=== PATIENT | male | born 1940 | race African-American/Black ===

== ENCOUNTER → 2017-02-03 | Day surgery (SDC) | payer MEDICARE, MEDICAID ==
--- NOTE | 2017-01-30 10:38 | Pre-Procedure Note/Attestation ---
Pre-Procedure Note/Attestation Complete Prior to Procedure Planned Procedure: left Procedure Narrative: phaco with IOL Indications for Procedure Pre-Operative Diagnosis: cataract Attestation I attest that I discussed the nature of the procedure; its benefits; risks and complications; and alternatives (and the risks and benefits of such alternatives ), prior to the procedure, with the patient (or the patient's legal phone representative). I attest that, if there was a reasonable possibility of needing a blood transfusion, the patient (or the patient's legal phone representative) was given the [facility] standardized written summary, pursuant to the [place] Blood Safety Act ([place] Health and Safety Code # 1645, as amended). I attest that I re-evaluated the patient just prior to the surgery and that there has been no change in the patient's H&P, except as documented below: RUPESH MAHER Jan 30, 2017 10:38
--- NOTE | 2017-01-30 10:40 | Opthalmology H&P ---
Ophthalmology H&P H&P Chief Complaint: decreased vision in left eye HPI Vision Affects Ability to: read, focus/use eyes together, manage personal affairs HPI Narrative blurry vision Exam Visual Acuity: OD: 20/40 OS; 20/50 Tension: OD: 14 OS; 13 Eye Exam: normal OU: anterior chambers, corneas, external exam, levator function, marginal reflex distance, palpebral fissure-width, findings: fundus exam - OD: Retinal Hole OS: 0.3, lens - OD: IOL OS: ns Assessment/Plan Diagnosis: (1) Cataract Treatment Plan: cataract extraction w/ lens implant Goals of Treatment: improvement of vision, enhance quality of life Attestation Attestation The risks and benefits of the surgery as well as alternative procedures were explained to the patient in detail. RUPESH MAHER Jan 30, 2017 10:40
[2017-01-30 13:09] LABS: BASOPHILS % (AUTO) 1.3 % (0.0-2.0); EOSINOPHILS % (AUTO) 2.2 % (0.0-3.0); MEAN CORPUSCULAR HEMOGLOBIN 28.7 PG (27.0-31.0); MEAN CORPUSCULAR HGB CONC 31.7 G/DL (32.0-36.0); MEAN CORPUSCULAR VOLUME 91 FL (80-99); MEAN PLATELET VOLUME 4.2 FL (6.5-10.1); NEUTROPHILS % (AUTO) 64.5 % (45.0-75.0); PLATELET COUNT 307 K/UL (150-450); RED BLOOD COUNT 3.28 M/UL (4.70-6.10); RED CELL DISTRIBUTION WIDTH 13.3 % (11.6-14.8); WHITE BLOOD COUNT 5.5 K/UL (4.8-10.8)
[2017-01-30 13:20] LABS: PROTHROMBIN TIME 10.1 SEC (9.30-11.50)
[2017-01-30 13:24] LABS: ANION GAP 18 (5-15); CALCIUM 8.5 mg/dL (8.6-10.2); CARBON DIOXIDE 25 mEQ/L (20-30); CHLORIDE 94 mEQ/L (98-107); CREATININE 4.5 mg/dL (0.7-1.2); HEMOLYSIS 0; POTASSIUM 4.4 mEQ/L (3.4-4.9); SODIUM 137 mEQ/L (135-145)
[2017-02-03] VITALS (9 sets, daily range): BP systolic 141–182; BP diastolic 75–83
[~2017-02-03] VITALS: Ht 180.3 cm; Wt 97.1 kg
[~2017-02-03] MED LIST: ACETAMINOPHEN-1 EAC1 ORAL; ACETAMINOPHEN-1 EAC1 PO; AMLODIPINE BESY10 MG PO; Akten 3.5% 1ml Btl LEFT EYE ONE; BICALUTAMIDE50 MG ORAL; BSS 15ml BTL ONE; BSS 500ml btl ONE; Carbachol 0.01% Op Soln 1.5ml vial ONE; DOCUSATE SODIU100 MG PO; Dexamethasone 4mg/ml vial ONE; EPINEPHrine 1mg/1ml Amp ONE; FERROUS SULFAT325 MG ORAL; FINASTERIDE5 MG ORAL; FLOMAX0.4 MG ORAL; FUROSEMIDE40 MG/5 ML PO; HYDROCHLOROTHIA25 MG PO; LASIX20 M1 PO; LASIX40 MG ORAL; LOSARTAN POTASS50 MG PO; LR 1000ml ONE; Maxitrol Opth Oint 3.5gm ONE; Midazolam 2mg/2ml Inj ONE; NORVASC5 MG ORAL; PRORENAL QD SO1 EACH PO; Pilocarpine 2% Opth Soln ONE; Povidone-Iodine 5% opth solution ONE; Pred Forte 1% Opth Susp 1ml ONE; SENOKOT-S TABL1 EACH PO; Sodium Hyaluronate 14 mg/ml 0.85ml ONE; Tetracaine 0.5% Opth Soln ONE; Tobramycin Op Soln 0.3% LEFT EYE ONE; UNOBMED; VITAMIN C500 M7 PO; acetaZOLAMIDE 500mg Inj ONE; fentaNYL 100 mcg/2 mL IV ONE
[2017-02-03] MEDS: Cyclopentolate 1% Opth Sol LEFT EYE SCH ×3 (07:55→08:18)
[2017-02-03] MEDS: Tropicamide 1% Opth Soln LEFT EYE SCH ×3 (07:56→08:19)
[2017-02-03] MEDS: Diclofenac Sod 0.1% Op Soln LEFT EYE SCH ×3 (07:56→08:18)
[2017-02-03] MEDS: Phenylephrine 2.5% Op Soln LEFT EYE SCH ×3 (07:57→08:19)
--- NOTE | 2017-02-03 09:57 | Immediate Post-Op Evaluation ---
Immediate Post-Op Evalulation Immediate Post-Op Evalulation Procedure: cataract extraction left eye Date of Evaluation: Feb 03, 2017 Time of Evaluation: 09:56 IV Fluids: 500 Blood Pressure Systolic: 140 Blood Pressure Diastolic: 80 Pulse Rate: 64 Respiratory Rate: 12 O2 Sat by Pulse Oximetry: 98 Pain Score (1-10): 98.0 Nausea: No Vomiting: No Complications none Patient Status: awake, reacts Drug: none MERCEDES SALDAÑA CRNA Feb 03, 2017 09:57
--- NOTE | 2017-02-03 10:13 | Anethesia Preoperative Eval ---
Anesthesia Pre-op PMH/ROS General Date of Evaluation: Feb 03, 2017 Time of Evaluation: 09:15 Anesthesiologist: burke ASA Score: ASA 2 Mallampati Score Class I : Soft palate, uvula, fauces, pillars visible Class II: Soft palate, uvula, fauces visible Class III: Soft palate, base of uvula visible Class IV: Only hard plate visible Mallampati Classification: Class II Surgeon: janie Diagnosis: cataract Surgical Procedure: Cataract extraction with IOL Anesthesia History: none Family History: no anesthesia problems Allergies: Coded Allergies: DOCUSATE (Verified Allergy, Unknown, blister, 02/01/16) Medications: see eMAR Past Medical History Cardiovascular: Reports: HTN Pulmonary: Denies: COPD, EUGENIO, asthma, other Gastrointestinal/Genitourinary: Reports: CRI Neurologic/Psychiatric: Denies: CVA, TIA, dementia, depression/anxiety, other Endocrine: Denies: DM, hypothyroidism, other, steroids HEENT: Reports: cataract (L) Hematology/Immune: Reports: anemia Musculoskeletal/Integumentary: Reports: other - BPH Anesthesia Pre-op Phys. Exam Physician Exam Last Vital Signs Date Time Temp Pulse Resp B/P Pulse Ox O2 Delivery O2 Flow Rate FiO2 02/03/17 09:57 64 12 98 02/03/17 08:02 98.0 151/76 Room Air Constitutional: NAD Neurologic: CN 2-12 intact Cardiovascular: RRR Respiratory: CTA Gastrointestinal: S/NT/ND Airway Exam Mallampati Classification 3 MO: full ROM: full Dentures: no lower, no upper Anesthesia Pre-op A/P Studies Pre-op Studies: EKG - SR with BBB Risk Assessment & Plan Assessment: denies changes in health Plan: mac Status Change Before Surgery: No Pre-Antibiotics Drug: none MERCEDES SALDAÑA REGISTERED NURSE CARDIOVASCULAR ICU Feb 03, 2017 10:13
--- NOTE | 2017-02-03 10:30 | 48 Hour Post Anesthesia Eval ---
Post Anesthesia Evaluation Procedure: cataract extraction left eye Date of Evaluation: Feb 03, 2017 Time of Evaluation: 10:29 Blood Pressure Systolic: 140 0: 70 Pulse Rate: 74 O2 Sat by Pulse Oximetry: 98 Airway: patent Nausea: No Vomiting: No Hydration Status: adequate Mental Status/LOC: patient returned to baseline Post-Anesthesia Complications: none MERCEDES SALDAÑA CRNA Feb 03, 2017 10:30
--- NOTE | 2017-02-03 14:54 | Brief Operative Note ---
Immediate Post Operative Note Operative Note Chief Complaint: blurry vision Pre-op Diagnosis: cataract,OS Procedure: phaco with IOL, OS Post-op Diagnosis: Pseudophakia, OS Post-op Diagnosis: same as pre-op Findings: consistent w/pre-op dx studies Surgeon: Yuki Anesthesiologist: Kanu Anesthesia: MAC Specimen: none Complications: none Condition: stable Estimated Blood Loss: none Drains: none Implant(s) used?: Yes RUPESH MAHER Feb 03, 2017 14:54
--- NOTE | 2017-02-03 15:42 | Operative Note - PDOC ---
Operative Note Operative Note Date of Operation/Procedure: Feb 03, 2017 Chief Complaint: blurry vision Pre-op Diagnosis: cataract,OS Procedure: phaco with IOL, OS Post-op Diagnosis: Pseudophakia, OS Post-op Diagnosis: same as pre-op Operative Findings: consistent w/pre-op dx studies Surgeon: Yuki Anesthesiologist: Kanu Anesthesia: MAC Specimen: none Complications: none Condition: stable Estimated Blood Loss: none Drains: none Implant(s) used?: Yes Indications for Procedure cataract Description of Procedure This patient has been complaining visually significant cataract in the affected eye with the best corrected visual acuity under moderate glare conditions worse. The patient complains of difficulties with glare in performing activities of daily living and wants to manage personal affairs with comfort and accuracy and see well enough to move with safety at home and outdoors. ~~~ The risks, benefits and alternatives of the procedure were discussed with the patient in the office prior to scheduling surgery. All questions from the patient were answered after the surgical procedure was explained in detail. The risks of the procedure as explained to the patient include, but are not limited to, pain, infection, bleeding, loss of vision, retinal detachment, need for further surgery, loss of lens nucleus, double vision, etc. Alternative procedures were discussed which include, to do nothing or seek a second opinion. Informed consent for this procedure was obtained from the patient. The patient was referred to a primary care physician for a cardiopulmonary clearance prior to surgery, after proper evaluation was done patient was properly scheduled for outpatient surgery. The patient was brought to the operating room where the anesthesiologist established I.V. lines and cardiac monitoring leads. Mild intravenous sedation was administered.~~ The patient was then prepared with a 5% solution of povidone -iodine to the conjunctival fornix and lashes, and a 10% solution of povidone- iodine to the lids and periorbital skin. The patient was then draped in the usual sterile fashion. A lid speculum was then placed in the operative eye. A keratome blade was then used to create a biplanar incision into the anterior chamber. Viscoelastics was then instilled into the anterior chamber. A capsulorrhexis was then fashioned with an utrata forceps. BSS and a cannula were then used to hydrodissect and hydro delineate the lens. Paracentesis incision was made at 3 o'clock with sharp blade. The phacoemulsification unit, after being properly adjusted~ and tested, was then used to emulsify the nucleus. Residual cortical material was aspirated with the irrigation and aspiration unit. Healon was then instilled into the anterior chamber. The corneal wound was then enlarged to the size of the optic with the patrice keratome blade. The intraocular lens was then inspected for right~ power and size~ and thought to be satisfactory. Then the lens was gently placed in the capsular bag. Positioning within the capsular bag was confirmed by direct visualization. Viscoelastics~ was removed from the anterior chamber using the irrigation and aspiration unit. The corneal wound was then tested for leaks and none were found. The lid speculum were then removed. Sponge and needle counts were correct. An eye patch and shield were placed over the operative eye. The patient was taken to the recovery room in stable condition. There were no complications. The patient tolerated the procedure well. The patient was then transferred to the ambulatory surgery unit in stable and satisfactory condition , was given detailed written instructions and asked to follow up~ in the office the next day. ~ ~ Dictated & Transcribed: [facility] Adelina ORELLANA JAMES Feb 03, 2017 15:42
--- NOTE | 2017-02-03 17:05 | Cardiology Report ---
APPROVED REPORT EKG Measurement Heart [id number] Sinus bradycardia Right bundle branch block Abnormal ECG
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
== END | disposition home or self-care (01) ==
LOC: SUR 06:40
DX: H26.9 Unspecified cataract (principal); I12.9 Hypertensive chronic kidney disease with stage 1 through stage 4 chronic kidney disease, or unspecified chronic kidney disease; N18.4 Chronic kidney disease, stage 4 (severe); D64.9 Anemia, unspecified; R00.1 Bradycardia, unspecified; N40.0 Benign prostatic hyperplasia without lower urinary tract symptoms; Z88.8 Allergy status to other drugs, medicaments and biological substances
CPT/HCPCS: 36415; 66984; 80048; 85025; 85610; 85730; 93005; J0171; J1100; J2250; J3010; J3370; J7120; V2632; 94003; 94150